=== PATIENT | male | born 1975 | race Hispanic/Latino ===

== ENCOUNTER 2023-01-16 14:51 | Outpatient (CLI) | payer OTHER | END 2023-01-16 14:52 | disposition home or self-care (01) | LOC: RAD 14:51 | PROVIDERS: ATTEND Nurse Practitioner Family | DX: R10.31 Right lower quadrant pain (principal) | CPT/HCPCS: 74018 ==

== ENCOUNTER 2024-09-13 15:32 | Outpatient (CLI) | payer OTHER | END 2024-09-13 15:33 | disposition home or self-care (01) | LOC: BICCT 15:32 | PROVIDERS: ATTEND Nurse Practitioner Family | DX: R07.89 Other chest pain (principal) | CPT/HCPCS: 71046 ==